=== PATIENT | male | born 1985 | race African-American/Black ===

== ENCOUNTER 2021-03-08 06:14 | Emergency (ER) | payer BC, OTHER ==
[~2021-03-08] VITALS: Ht 177.8 cm; Wt 145.2 kg
[~2021-03-08 06:14] MED LIST: NORCO 5-325 TA1 EACH PO
[2021-03-08 07:07] LABS: ABSOLUTE NEUTROPHILS 5.1 thou/uL (1.4-8.2); BASOPHILS 0.6 % (0.0-2.0); EOSINOPHILS 2.3 % (0.0-3.0); HEMATOCRIT 41.3 % (42.0-52.0); HEMOGLOBIN 13.8 gm/dL (14.0-18.0); LYMPHOCYTES 25.2 % (24.0-44.0); MCH 29.7 pg (26.0-34.0); MCHC 33.4 g/dL (28.0-37.0); PLATELET COUNT 328 thou/uL (150-400); POLYS 59.9 % (36.0-66.0); RBC 4.64 mil/uL (4.50-6.00); RDW 13.4 % (10.5-14.5); WBC 8.6 thou/uL (4.0-11.0)
--- NOTE | 2021-03-08 07:32 | EKG ---
[place] [address] [facility] [id number] [address] ELECTROCARDIOGRAM REPORT Name: MARQUIS DODD Room #: REG YAMILEX MJenny#: [id number] Admission: 03/08/21 Attend Phys: Discharge: Date of : 83 Report #: [id number] [facility] ED Test Date: 2021-03-08 Test Time: 07:14:08 Pat Name: MARQUIS DODD Department: Room: Gender: M Credit Administration Officer: rachel : 1985 Requested By: Severiano Taveras Order Number: [id number] MD: Jm Yañez Measurements Intervals [place] Rate: 75 P: 33 ME: 164 QRS: -1 QRSD: 96 T: 0 QT: 374 QTc: 418 Interpretive Statements Sinus rhythm Probable left ventricular hypertrophy Borderline T abnormalities, inferior leads Baseline wander in lead(s) V2,V3 Compared to ECG 11/09/2013 15:10:15 T-wave abnormality now present Electronically Signed On 03-08-2021 7:31:43 CDT by Jm Yañez [email or web address] <ELECTRONICALLY SIGNED> By: Jm Yañez MD, [facility] 03/08/21 0731 3 Jm Yañez MD, FACC /EPI
[2021-03-08 07:43] LABS: ANION GAP 8 mmol/L (7-16); BUN 13 mg/dL (7-18); CALCIUM 9.2 mg/dL (8.5-10.1); CHLORIDE 100 mmol/L (98-107); CO2 28 mmol/L (21-32); CREATININE 1.2 mg/dL (0.7-1.3); GLUCOSE 127 mg/dL (74-106); POTASSIUM 3.6 mmol/L (3.5-5.1); SODIUM 136 mmol/L (136-145)
[2021-03-08 07:51] LABS: TROPONIN-I <0.06 ng/mL (<0.06)
[2021-03-08 09:03] VITALS: BP 146/84
== END 2021-03-08 09:04 | disposition home or self-care (01) ==
LOC: ER 06:14
PROVIDERS: Emergency Medicine
DX: B34.9 Viral infection, unspecified (principal); Z20.822 Contact with and (suspected) exposure to COVID-19; E78.00 Pure hypercholesterolemia, unspecified